=== PATIENT | female | born 1955 | race African-American/Black ===

== ENCOUNTER → 2018-12-20 | Outpatient (CLI) | payer OTHER ==
--- NOTE | 2018-12-23 20:34 | SLE ---
[facility] [place] [address] POLYSOMNOGRAPHY STUDY Name: DEXTER FERGUSON Room #: REG [facility]#: [id number] Admission: 12/20/18 Attend Phys: Emmett Matthews MD Discharge: Date of : 55 Report #: [id number] THIS REPORT FOR: //name// CC: Emmett Groves Physician staff DATE OF SERVICE: 12/20/2018 ATTENDING PHYSICIAN: Roxanne Groves. The patient is 63 years old who weighs 180 pounds with a BMI of 30. The patient's [place] score was 5. The patient underwent a split night study performed at [facility]. During the night study, the patient spent 469 minutes in bed and slept for 214 minutes with a low sleep efficiency of 45%. Sleep latency was 24 minutes with a REM latency of 257 minutes. Sleep architecture showed increased stage 1 and stage 2 sleep, absent slow wave and reduced REM sleep. During the initial diagnostic portion of the study, the patient slept for 111 minutes. During that time, there were 12 obstructive apneas, 1 mixed and 1 central apneas and 48 hypopneas. The patient's apnea hypopnea index was 33 per hour. REM sleep was not seen during the diagnostic portion. Supine AHI of 33 per hour. EKG monitoring revealed normal sinus rhythm. Average heart rate 88 beats per minute. No clinically significant PLM seen during the diagnostic portion. Nocturnal oximetry study revealed an average oxygen saturation of 94% with a lowest of 83%. 1.8 minutes were spent in oxygen saturation of less than 89%. The patient met the criteria for CPAP initiation. It was started at 9 cm water and titrated up to 14 cm water. At the final pressure, the patient slept for 16.9 minutes including 6 minutes of supine REM sleep. The patient's AHI was reduced to 0 per hour and oxygen saturation remained above 96%. IMPRESSION: 1. Severe sleep apnea-hypopnea syndrome at an AHI of 33 per hour. 2. Reduced sleep efficiency of 45%, resulting from sleep onset and sleep maintenance insomnia. 3. No clinically significant PLM seen during the diagnostic portion of the study, although the PLMS did increase while the patient slept on therapeutic CPAP pressure. 4. Mild nocturnal hypoxia secondary to PAUL, but resolved with CPAP. [facility] [address] [address] POLYSOMNOGRAPHY STUDY Name: DEXTER FERGUSON Room #: REG [facility]#: [id number] Admission: 12/20/18 Attend Phys: Emmett Matthews MD Discharge: Date of : 55 Report #: [id number] RECOMMENDATIONS: 1. CPAP at 14 cm water completely eliminated the patient's sleep apnea and should be used on a nightly basis. 2. Follow up in 4-6 weeks to assess compliance with CPAP and to document clinical improvement. 3. Weight loss is advised. 4. Avoid [employer] depressants. 5. Cautioned regarding driving until symptoms of sleep apnea resolve with the use of CPAP. 6. The patient's insomnia should be further evaluated and treated if it persists despite effective use of CPAP. 7. The patient should also be further evaluated for symptoms of restless legs during the day. <ELECTRONICALLY SIGNED> By: Emmett Matthews MD 12/23/18 2034 [id number] 1821 Emmett Matthews MD /nt
== END ==
LOC: SLEEPLAB 12:09
DX: G47.33 Obstructive sleep apnea (adult) (pediatric) (principal); G47.34 Idiopathic sleep related nonobstructive alveolar hypoventilation; R09.02 Hypoxemia; I10 Essential (primary) hypertension